=== PATIENT | female | born 1985 | race Caucasian/White ===

== ENCOUNTER → 2016-06-09 | Outpatient (CLI) | payer BC, OTHER ==
[2016-06-09 10:43] LABS: HEMOGLOBIN 12.7 gm/dl (12.3-15.3); RED BLOOD COUNT 4.37 M/UL (4.00-5.10); WHITE BLOOD COUNT 16.8 K/UL (4.5-11.0)
== END ==
LOC: GENOP 10:02
PROVIDERS: Obstetrics & Gynecology
DX: O34.219 Maternal care for unspecified type scar from previous cesarean delivery (principal); Z3A.37 37 weeks gestation of pregnancy
CPT/HCPCS: 36415; 81001; 85025; J7120

== ENCOUNTER 2016-06-10 05:24 | Inpatient (IN) | payer BC, OTHER ==
[~2016-06-10] VITALS: Ht 180.3 cm; Wt 160.6 kg
[2016-06-11 03:59] LABS: HEMOGLOBIN 10.1 gm/dl (12.3-15.3)
== END 2016-06-12 19:03 | disposition home or self-care (01) | DRG 765 ==
LOC: OB 05:24
PROVIDERS: ADMIT Obstetrics & Gynecology
PROC: 3E0R3CZ (ICD-10-PCS; 2016-06-10)
PROC: 10D00Z1 Extraction of Products of Conception, Low, Open Approach (ICD-10-PCS; principal; 2016-06-10 07:30)
DX: O11.4 Pre-existing hypertension with pre-eclampsia, complicating childbirth (principal); Z68.42 Body mass index [BMI] 45.0-49.9, adult; O98.52 Other viral diseases complicating childbirth; O32.1XX0 Maternal care for breech presentation, not applicable or unspecified; O10.92 Unspecified pre-existing hypertension complicating childbirth; O99.214 Obesity complicating childbirth; E66.01 Morbid (severe) obesity due to excess calories; O99.334 Smoking (tobacco) complicating childbirth; F17.210 Nicotine dependence, cigarettes, uncomplicated; B02.9 Zoster without complications; Z3A.37 37 weeks gestation of pregnancy; Z37.0 Single live birth; O99.613 Diseases of the digestive system complicating pregnancy, third trimester; K21.9 Gastro-esophageal reflux disease without esophagitis; K59.00 Constipation, unspecified; O99.344 Other mental disorders complicating childbirth; F41.9 Anxiety disorder, unspecified; Z79.899 Other long term (current) drug therapy; Z88.5 Allergy status to narcotic agent; Z87.76 Personal history of (corrected) congenital malformations of integument, limbs and musculoskeletal system; Z87.442 Personal history of urinary calculi; Z90.49 Acquired absence of other specified parts of digestive tract; Z98.890 Other specified postprocedural states; Z83.3 Family history of diabetes mellitus; Z82.49 Family history of ischemic heart disease and other diseases of the circulatory system; Z80.9 Family history of malignant neoplasm, unspecified
CPT/HCPCS: 36415; 82800; 85014; 85018; 90715; C9113; J0690; J1650; J1885; J2274; J2405; J2590; J2765; J7120; Q0162

== ENCOUNTER → 2016-07-28 | Outpatient (CLI) | payer BC, OTHER | LOC: KOH-I 15:36 | DX: M25.531 Pain in right wrist (principal) | CPT/HCPCS: 73110 ==

== ENCOUNTER 2020-08-08 00:07 | Emergency (ER) | payer MEDICARE, OTHER ==
[~2020-08-08 00:07] MED LIST: ANAPROX DS550 MG PO; FLEXERIL 10 MG10 MG PO; IBUPROFEN600 MG PO; ONDANSETRON ODT4 MG PO; PREDNISONE 50 M50 MG PO; Voltaren Gel 1 % TOP
== END 2020-08-08 02:10 | disposition left against medical advice (07) ==
LOC: ER1 00:07
DX: Z53.21 Procedure and treatment not carried out due to patient leaving prior to being seen by health care provider (principal)
CPT/HCPCS: 81001; 84703; 93005; J2550

== ENCOUNTER 2021-09-03 03:19 | Emergency (ER) | payer MEDICARE, OTHER ==
[2021-09-03] MEDS ORDERED: ZOFRAN ODT 4 MG4 MG PO (04:09)
[2021-09-03] MEDS ORDERED: CLEOCIN HCL150 MG PO (04:09)
[2021-09-03] MEDS ORDERED: IBUPROFEN600 MG PO (04:09)
== END 2021-09-03 05:07 | disposition home or self-care (01) ==
LOC: ER1 03:19
DX: K08.89 Other specified disorders of teeth and supporting structures (principal); R68.84 Jaw pain; I10 Essential (primary) hypertension; J45.909 Unspecified asthma, uncomplicated
CPT/HCPCS: 96365; 96372; 96375; 99283; J1885; J2550

== ENCOUNTER 2021-09-24 00:09 | Emergency (ER) | payer MEDICARE, OTHER ==
[~2021-09-24 00:09] MED LIST changes: +CLEOCIN HCL150 MG PO; +ZOFRAN ODT 4 MG4 MG PO
[2021-09-24 00:43] LABS: HEMOGLOBIN 14.7 gm/dl (12.3-15.3); RED BLOOD COUNT 4.68 M/UL (4.00-5.10); WHITE BLOOD COUNT 14.7 K/UL (4.5-11.0)
[2021-09-24 01:02] LABS: BUN/CREATININE RATIO 13 (0-10)
[2021-09-24] MEDS ORDERED: ONDANSETRON ODT4 MG SL (03:20)
[2021-09-24] MEDS ORDERED: DIFLUCAN150 MG PO (03:20)
[2021-09-24] MEDS ORDERED: CEFUROXIME500 MG PO (03:20)
[2021-09-24] MEDS ORDERED: PYRIDIUM200 MG PO (03:20)
== END 2021-09-24 03:25 | disposition home or self-care (01) ==
LOC: ER1 00:09
PROVIDERS: Student in an Organized Health Care Education/Training Program
DX: N39.0 Urinary tract infection, site not specified (principal); R11.2 Nausea with vomiting, unspecified; I10 Essential (primary) hypertension; Z87.442 Personal history of urinary calculi; Z91.040 Latex allergy status; Z88.5 Allergy status to narcotic agent
CPT/HCPCS: 80053; 81001; 84703; 85025; 99284